=== PATIENT | female | born 1970 | race Two or more races ===

== ENCOUNTER → 2018-06-04 16:00 | Outpatient (CLI) | payer BC, SELFPAY ==
[2018-06-04 15:01] VITALS: BMI 42.5
--- NOTE | 2018-06-04 16:05 | RAD_ITS ---
STUDY: X-RAY - RIGHT HIP REASON FOR EXAM: Female, 48 years old. ] Hip pain TECHNIQUE: 2 views of the hip. COMPARISON: None. FINDINGS: The left hip is normal. There is narrowing of the superior compartment of the right hip joint with spurs from the right femoral head and buttressing of the femoral neck. The sacral iliac joints are normal. There are no acute fractures in the pelvis. RAD/HIP, UNI W/ Pelvis 2-3 Views IMPRESSION: Osteoarthritis of the right hip. No acute fractures Electronically Signed: Simon Trinidad MD at 3:19 EST Tel , Service support ,
== END ==
PROVIDERS: Family Provider Orthopaedic Surgery; PCP Orthopaedic Surgery; Referring Provider Orthopaedic Surgery; Visit Provider Orthopaedic Surgery
DX: M25.551 Pain in right hip (principal)
CPT/HCPCS: 73502